=== PATIENT | male | born 1985 | race Caucasian/White ===

== ENCOUNTER 2023-06-07 09:59 | Outpatient (CLI) | payer OTHER, SELFPAY | END 2023-06-07 10:00 | disposition home or self-care (01) | LOC: NFLDREF 06-08 12:04 | PROVIDERS: PCP Family Medicine; Referring Provider Family Medicine; Visit Provider Family Medicine | DX: Z00.00 Encounter for general adult medical examination without abnormal findings (principal); F41.8 Other specified anxiety disorders; R53.83 Other fatigue; E66.3 Overweight; Z76.89 Persons encountering health services in other specified circumstances | CPT/HCPCS: 80053; 80061; 82306; 84270; 84402; 84403; 84443 ==

== ENCOUNTER 2023-06-27 17:19 | Outpatient (CLI) | payer OTHER, SELFPAY ==
--- NOTE | 2023-06-27 17:30 | CRLHL7_ITS ---
For Patients: As a result of the Century Cures Act, medical imaging exams and procedure reports are released immediately into your electronic medical record. You may view this report before your referring provider. If you have questions, please contact your health care provider. INDICATION: Dyspnea for 5 days, chest pain right calf, elevated D-dimer TECHNIQUE: CT chest with i.v. contrast using pulmonary angiographic technique. Coronal and sagittal reformats were obtained. CONTRAST: 95 mL Isovue 370 COMPARISON: None FINDINGS: Cardiovascular: Moderate acute pulmonary emboli are seen in the right middle lobe, lingula, and lower lobes bilaterally. The heart has an unremarkable appearance and size. No sign of aneurysm in the thoracic aorta. Mediastinum: No mass or adenopathy seen. Lung: Both lungs are unremarkable in appearance. Pleura and pericardium: No sign of pleural effusion seen. No significant pericardial effusion is present. Chest wall and axilla: No mass or adenopathy seen. Bone: Unremarkable for age. Upper abdomen: Unremarkable. IMPRESSION: 1. Moderate acute pulmonary emboli are seen in the right middle lobe, lingula, and lower lobes bilaterally. The RV-LV ratio is approximately 0.8. The findings were discussed with Dr. Hoff at 6:53 PM. Dictated by Zach Bell MD @ 06/27/2023 6:48:25 PM Please note that all CT scans at this facility use dose modulation, iterative reconstruction, and/or weight-based dosing when appropriate to reduce radiation dose to as low as reasonably achievable. Dictated by: Zach Bell MD @ 06/27/2023 18:54:26 (Electronically Signed)
--- NOTE | 2023-06-27 18:30 | CRLHL7_ITS ---
For Patients: As a result of the Century Cures Act, medical imaging exams and procedure reports are released immediately into your electronic medical record. You may view this report before your referring provider. If you have questions, please contact your health care provider. INDICATION: Leg pain and swelling. TECHNIQUE: Ultrasound venous duplex lower right extremity. Compression venous exam was performed using marquez-scale, color Doppler, and spectral Doppler analysis. COMPARISON: None. FINDINGS: Deep veins: Acute DVT in 3 of the 4 visualize right gastrocnemius veins. Remaining deep veins are patent. Superficial veins: Greater saphenous vein is fully compressible. No popliteal cyst. IMPRESSION: Acute DVT in 3 of the 4 visualize right gastrocnemius veins. Remaining deep veins are patent. Case discussed with Elyssa Hoff at 7:18 pm on 06/27/2023. Dictated by Norberto Izquierdo MD @ 06/27/2023 7:05:41 PM (Electronically Signed)
== END 2023-06-27 17:20 | disposition home or self-care (01) ==
LOC: CT 17:20
PROVIDERS: PCP Family Medicine; Visit Provider Family Medicine
DX: M79.661 Pain in right lower leg (principal); I82.461 Acute embolism and thrombosis of right calf muscular vein; R06.00 Dyspnea, unspecified; I26.99 Other pulmonary embolism without acute cor pulmonale
CPT/HCPCS: 71275; 93971; Q9967

== ENCOUNTER 2023-07-16 10:23 | Outpatient (CLI) | payer OTHER, SELFPAY | END 2023-07-16 10:24 | disposition home or self-care (01) | PROVIDERS: PCP Family Medicine; Visit Provider Family Medicine | DX: Z00.00 Encounter for general adult medical examination without abnormal findings (principal); I26.99 Other pulmonary embolism without acute cor pulmonale; R53.83 Other fatigue | CPT/HCPCS: 81442 ==

== ENCOUNTER 2023-12-17 13:56 | Outpatient (REF) | payer OTHER, SELFPAY ==
[2023-12-17 14:36] LABS: Basophils Absolute Auto 0.04 K/uL (0.00-0.30); Basophils Percent Auto 0.6 % (0.0-3.0); Eosinophils Absolute Auto 0.13 K/uL (0.00-0.50); Hematocrit 47.8 % (37.0-53.0); Immature Granulocytes Abs Auto 0.02 K/uL (0.00-0.30); Immature Granulocytes Pct Auto 0.3 %; Lymphocytes Absolute Auto 1.89 K/uL (0.90-2.90); Lymphocytes Percent Auto 28.5 % (20-44); Mean Corpuscular HGB Conc 34 gm/dL (32-36); Mean Corpuscular Hemoglobin 30 pg (26-34); Mean Corpuscular Volume 90 fL (80-100); Monocytes Percent Auto 10.4 % (0.0-11.0); Neutrophils Absolute Auto 3.87 K/uL (1.7-7.0); Neutrophils Percent Auto 58.2 % (42.0-72.0); Platelet Count* 216 K/uL (140-440); RDW Coefficient of Variation % 12.7 % (11.5-15.5); Red Blood Count 5.33 m/uL (4.30-5.90); White Blood Count* 6.64 K/uL (4.50-11.00)
[2023-12-17 14:42] LABS: Slide Review Reflex No
[2023-12-17 14:49] LABS: Albumin* 4.5 g/dL (3.3-5.0); Chloride* 107 mmol/L (96-114); Potassium* 4.3 mmol/L (3.6-5.1); Sodium* 139 mmol/L (135-149)
[2023-12-17 14:52] LABS: Alanine Aminotransferase* 36 U/L (4-50); Alkaline Phosphatase* 58 U/L (40-150); Anion Gap 1 mEq/L (7-15); Aspartate Amino Transferase* 30 U/L (12-35); Bilirubin Total* 0.6 mg/dL (0.1-1.5); Blood Urea Nitrogen* 13 mg/dL (5-24); Carbon Dioxide* 31 mmol/L (20-32); Creatinine* 0.8 mg/dL (0.5-1.5); Estimated Glomerular Filt Rate 118 ml/min; Glucose* 92 mg/dL (60-115); Total Protein* 7.1 g/dL (6.0-8.3)
[2023-12-17 14:53] LABS: Calcium* 9.4 mg/dL (8.4-10.6)
== END 2023-12-17 13:57 | disposition home or self-care (01) ==
LOC: NPINS 13:56
PROVIDERS: PCP Family Medicine; Visit Provider Psychiatry & Neurology Neurology
DX: G43.009 Migraine without aura, not intractable, without status migrainosus (principal)
CPT/HCPCS: 80053; 85025

== ENCOUNTER 2024-02-25 19:25 | Outpatient (CLI) | payer OTHER, SELFPAY ==
--- NOTE | 2024-03-04 12:25 | W.PM.SLEEP ---
Sleep Study Details Details Interpreting Provider: Justine Date of Sleep Study: 02/25/24 Sleep Study Details: STUDY TYPE:? Home unattended ? BMI:? 34.4 ORDERING PROVIDER:Usama Fletcher INDICATION:? Concerned about sleep apnea ? SLEEP SUMMARY:? 422 minutes monitored RESPIRATORY SUMMARY:? AHI 6.3, left lateral 2.0, supine 8.8, right lateral 2.0 Low oxygen 86 0.1% of study oxygen below 90% Snoring 32% PERIODIC LIMB MOVEMENTS OF SLEEP:? Not recorded CARDIAC:? Range 48-103, mean 71.6 beats per minute IMPRESSION:? Mild obstructive sleep apnea with supine position dependency RECOMMENDATION: Treatment options include avoidance of supine sleep, CPAP, dental appliance and/or airway expansion surgery.
== END 2024-02-25 19:26 | disposition home or self-care (01) ==
LOC: SLEEP 19:26
PROVIDERS: PCP Family Medicine; Visit Provider Otolaryngology
DX: G47.33 Obstructive sleep apnea (adult) (pediatric) (principal)
CPT/HCPCS: 95806

== ENCOUNTER 2024-03-24 15:30 | Outpatient (RCR) | payer OTHER, SELFPAY | END 2024-07-22 23:59 | disposition home or self-care (01) | PROVIDERS: PCP Family Medicine; Visit Provider Family Medicine | DX: M54.2 Cervicalgia (principal); G44.229 Chronic tension-type headache, not intractable; R29.3 Abnormal posture; R29.898 Other symptoms and signs involving the musculoskeletal system; Z51.89 Encounter for other specified aftercare | CPT/HCPCS: 97110; 97140; 97162 ==

== ENCOUNTER 2024-08-05 09:13 | Outpatient (CLI) | payer OTHER, SELFPAY | END 2024-08-05 09:14 | disposition home or self-care (01) | PROVIDERS: PCP Family Medicine; Visit Provider Family Medicine | DX: R53.83 Other fatigue (principal); Z13.228 Encounter for screening for other metabolic disorders; Z13.220 Encounter for screening for lipoid disorders | CPT/HCPCS: 80053; 80061; 84270; 84402; 84403 ==